=== PATIENT | female | born 1985 | race Caucasian/White ===

== ENCOUNTER 2018-08-23 05:17 | Inpatient (IN) | payer OTHER ==
[2018-08-21 16:05] LABS: MICROSCOPIC NOT IND
[~2018-08-23] VITALS: Ht 160 cm; Wt 54.0 kg
[~2018-08-23 05:17] MED LIST: MULT1TAB60 PO; [UNRECOGNIZED DRUG - OTHER] PO; [UNRECOGNIZED DRUG - OTHER] PO; [UNRECOGNIZED DRUG - OTHER] PO; [UNRECOGNIZED DRUG - OTHER] PO
[2018-08-23] MEDS ORDERED: LACTATED RINGERS 1,000 ML IV SCH (06:09)
[2018-08-23 06:12] VITALS: BP 101/70
[2018-08-23 06:53] LABS: HCG UR SG 1.023 (1.003-1.030)
[2018-08-23] MEDS ORDERED: FENTANYL PF 250 MCG/5ML ONE (07:13)
[2018-08-23] MEDS ORDERED: MIDAZOLAM 1 MG/ML, 2ML ONE (07:13)
[2018-08-23] MEDS ORDERED: THROMBIN 5,000 UNIT VIAL TP ONE (07:18)
[2018-08-23] MEDS ORDERED: BUPIVACAINE 0.25% ONE (07:18)
[2018-08-23] MEDS ORDERED: METHYLENE BLUE 10 MG/ML 10ML ONE (07:18)
[2018-08-23] MEDS ORDERED: FLUORESCEIN SODIUM 500 MG/5 ML ONE (07:19)
[2018-08-23] MEDS ORDERED: EPINEPHRINE 1 MG/ML, 1ML ONE (07:19)
[2018-08-23] MEDS ORDERED: SCOPOLAMINE PATCH, 1.5MG PATCH.TD72 TD ONE (07:29)
[2018-08-23] MEDS ORDERED: GABAPENTIN 300 MG CAPSULE ONE (07:30)
[2018-08-23] MEDS ORDERED: ACETAMINOPHEN 500 MG TABLET ONE (07:30)
[2018-08-23] MEDS ORDERED: NEOSTIGMINE 1 MG/ML, 10ML ONE (07:37)
[2018-08-23] MEDS ORDERED: DEXAMETHASONE 4 MG/ML, 1ML ONE (07:37)
[2018-08-23] MEDS ORDERED: ONDANSETRON 2MG/ML, 2ML ONE (07:37)
[2018-08-23] MEDS ORDERED: PROPOFOL 10 MG/ML, 50ML ONE (07:37)
[2018-08-23] MEDS ORDERED: ROCURONIUM 10 MG/ML,10ML ONE (07:37)
[2018-08-23] MEDS ORDERED: CEFAZOLIN 1,000 MG ONE (07:37)
[2018-08-23] MEDS ORDERED: PROPOFOL 10 MG/ML, 20ML ONE (07:37)
[2018-08-23] MEDS ORDERED: EPHEDRINE 50 MG/ML, 1ML ONE (07:37)
[2018-08-23] MEDS ORDERED: GLYCOPYRROLATE 0.2MG/1ML, 5ML ONE (07:37)
[2018-08-23] MEDS ORDERED: ALBUTEROL SULFATE 2.5 MG/3 ML NPPB PRN (09:00)
[2018-08-23] MEDS ORDERED: LORazepam 2 MG/ML, 1ML IVPush PRN (09:00)
[2018-08-23] MEDS ORDERED: LABETALOL 5MG/ML, 20ML IV PRN (09:00)
[2018-08-23] MEDS ORDERED: HYDROmorphone 2 MG/ML, 1ML IV PRN (09:00)
[2018-08-23] MEDS ORDERED: OXYcodone 5 MG/5 ML ORAL.SOL UDC PO PRN (09:00)
[2018-08-23] MEDS ORDERED: PROMETHAZINE 25 MG/ML, 1ML IV PRN (09:00)
[2018-08-23] MEDS ORDERED: MEPERIDINE/PF 25MG/0.5ML IVPush PRN (09:00)
[2018-08-23] MEDS ORDERED: hydrALAzine 20 MG/ML, 1ML IV PRN (09:00)
[2018-08-23] MEDS ORDERED: OXYcodone 5 MG/5 ML ORAL.SOL UDC ONE (11:08)
[2018-08-23] MEDS ORDERED: FENTANYL PF 100 MCG/2ML ONE (11:08)
[2018-08-23] MEDS: FENTANYL PF 100 MCG/2ML IV PRN ×2 (11:15→11:20)
[2018-08-23] MEDS ORDERED: ONDANSETRON 2MG/ML, 2ML IV PRN (16:00)
[2018-08-23] MEDS: ACETAMINOPHEN 500 MG TABLET PO SCH (16:52)
[2018-08-23] MEDS: OXYcodone IR 5MG TABLET PO PRN (18:29)
[2018-08-23 19:28] VITALS: BP 92/58
[2018-08-23] MEDS: D5%-0.45NACL+KCL 20MEQ 1,000 ML IV SCH (19:36)
[2018-08-24 00:03] VITALS: BP 101/60
[2018-08-24] MEDS: OXYcodone IR 5MG TABLET PO PRN ×5 (00:23→22:01)
[2018-08-24] MEDS: ACETAMINOPHEN 500 MG TABLET PO SCH ×3 (01:03→17:13)
[2018-08-24] MEDS: D5%-0.45NACL+KCL 20MEQ 1,000 ML IV SCH ×2 (05:08→12:40)
[2018-08-24 07:28] VITALS: BP 81/42
[2018-08-24 12:24] LABS: BASOPHILS # (AUTO) 0.01 x10^3/uL (0-0.1); BASOPHILS % (AUTO) 0 % (0-1); EOSINOPHILS # (AUTO) 0.03 x10^3/uL (0-0.4); EOSINOPHILS % (AUTO) 0 % (1-7); LYMPHOCYTES # (AUTO) 0.62 x10^3/uL (1-3.4); LYMPHOCYTES % (AUTO) 9 % (22-44); MD NO; MEAN CORPUSCULAR HEMOGLOBIN 31.6 pg (27.0-34.8); MEAN CORPUSCULAR HGB CONC 34.3 g/dL (32.4-35.8); MEAN CORPUSCULAR VOLUME 92.3 fL (80-100); MONOCYTES # (AUTO) 0.32 x10^3/uL (0.2-0.8); MONOCYTES % (AUTO) 4 % (2-9); NEUTROPHILS # (AUTO) 6.26 x10^3/uL (1.8-6.8); NEUTROPHILS % (AUTO) 87 % (42-75); PLATELET COUNT 177 x10^3/uL (130-400); RED BLOOD COUNT 4.32 x10^6/uL (3.82-5.3)
[2018-08-24 12:37] LABS: ANION GAP 5 mmol/L (5-15); CALCIUM 8.1 mg/dL (8.5-10.1); CHLORIDE 106 mmol/L (98-107); CREATININE 0.94 mg/dL (0.55-1.02)
[2018-08-24 13:58] VITALS: BP 98/58
[2018-08-24] MEDS ORDERED: HYDR-3240 PO (17:05)
[2018-08-24] MEDS ORDERED: MORPHINE SULFATE 4 MG/ML, 1ML IVPush PRN (18:00)
[2018-08-24 18:57] VITALS: BP 115/69
[2018-08-25] MEDS: ACETAMINOPHEN 500 MG TABLET PO SCH ×2 (01:05→08:31)
[2018-08-25] MEDS: OXYcodone IR 5MG TABLET PO PRN ×3 (02:05→10:39)
[2018-08-25 03:39] VITALS: BP 109/62
[2018-08-25 09:42] VITALS: BP 108/70
[2018-08-25] MEDS ORDERED: DOCU-131 PO (12:56)
== END 2018-08-25 13:22 | disposition home or self-care (01) | DRG 661 ==
LOC: OR 05:17 → ORIP 11:25 → 4NOR 14:12 → OBSVTOIN 14:16 → 4NOR 08-24 16:04
PROVIDERS: ADMIT Urology; ATTEND Urology
PROC: 0TP94DZ Removal of Intraluminal Device from Ureter, Percutaneous Endoscopic Approach (ICD-10-PCS; 2018-08-23)
PROC: 0T734DZ Dilation of Right Kidney Pelvis with Intraluminal Device, Percutaneous Endoscopic Approach (ICD-10-PCS; 2018-08-23)
PROC: 8E0W4CZ Robotic Assisted Procedure of Trunk Region, Percutaneous Endoscopic Approach (ICD-10-PCS; 2018-08-23)
PROC: 0TJB8ZZ Inspection of Bladder, Via Natural or Artificial Opening Endoscopic (ICD-10-PCS; 2018-08-23)
PROC: 0TQ34ZZ Repair Right Kidney Pelvis, Percutaneous Endoscopic Approach (ICD-10-PCS; principal; 2018-08-23 07:30)
DX: N13.1 Hydronephrosis with ureteral stricture, not elsewhere classified (principal); K21.9 Gastro-esophageal reflux disease without esophagitis; F15.90 Other stimulant use, unspecified, uncomplicated; I95.9 Hypotension, unspecified
CPT/HCPCS: 36415; J3490; 80048; 81003; 81025; 82570; 85025; 87086; 88305; C1729; G0378; J0171; J0690; J1100; J2250; J2405; J2704; J2710; J3010; C1760; C1769; C2617; J3480; J7120; Q9968